=== PATIENT | female | born 1960 ===

== ENCOUNTER 2017-09-07 16:00 | Emergency (ER) | payer SELFPAY ==
[2017-09-07 16:08] VITALS: BP 126/51
[2017-09-07] MEDS ORDERED: ASPIRIN PO ONE (16:08)
[2017-09-07 16:29] LABS: Hematocrit 38.5 % (30.3-42.9); Hemoglobin 13.1 gm/dl (10.1-14.3); Mean Corpuscular HGB Conc 34 % (30-34); Mean Corpuscular Hemoglobin 34 pg (28-32); Mean Corpuscular Volume 98 fl (79-97); Platelet Count 163 K/mm3 (140-440); Red Blood Count 3.92 M/mm3 (3.65-5.03); Red Cell Distribution Width 13.7 % (13.2-15.2)
[2017-09-07 16:57] LABS: BUN/Creatinine Ratio 17; Blood Urea Nitrogen 10 mg/dL (7-17); Calcium 9.1 mg/dL (8.4-10.2); Hemolysis Index 0
[2017-09-07 17:10] LABS: Basophils % (Manual) 0 % (0.0-1.8); Total Cells Counted 100
[2017-09-07 17:11] LABS: Anisocytosis Few; Platelet Estimate Consistent w Auto; Poikilocytosis Few
== END 2017-09-07 16:08 | disposition left against medical advice (07) ==
LOC: ED 16:00
DX: R07.89 Other chest pain (principal); Z53.21 Procedure and treatment not carried out due to patient leaving prior to being seen by health care provider
CPT/HCPCS: 36415; 80048; 84484; 85007; 85025; 93005; 93010